=== PATIENT | female | born 1955 | race Asian ===

== ENCOUNTER 2020-01-23 13:48 | Emergency (ER) | payer BC ==
[~2020-01-23] VITALS: Ht 160 cm; Wt 50.2 kg
[2020-01-23] MEDS ORDERED: SODIUM CHLORIDE 0.9% 100 ML ONE (14:02)
[2020-01-23] MEDS ORDERED: IOVERSOL 350 MG/ML 100 ML VIAL ONE (14:02)
[2020-01-23 14:10] LABS: BASOPHILS % (AUTO) 0.2 % (0.0-2.0); EOSINOPHILS % (AUTO) 0.1 % (1.0-6.0); HEMATOCRIT 42.8 % (36-46); LYMPHOCYTES # (AUTO) 0.6 K/uL (1.0-4.8); LYMPHOCYTES % (AUTO) 6.6 % (22.0-44.0); MEAN CORPUSCULAR HEMOGLOBIN 29.7 pg (26.0-34.0); MEAN CORPUSCULAR HGB CONC 32.7 G/dL (31.0-37.0); MEAN CORPUSCULAR VOLUME 91 fL (80-100); MONOCYTES # (AUTO) 0.4 K/uL (0.1-1.0); MONOCYTES % (AUTO) 4.5 % (2.0-9.0); NEUTROPHILS # (AUTO) 7.4 K/uL (1.8-7.7); RED CELL DISTRIBUTION WIDTH 18.3 % (11.5-14.5)
[2020-01-23 14:21] LABS: NEUTROPHILS % (AUTO) 88.6 % (40.0-70.0)
[2020-01-23 14:24] LABS: INR 1.3 (0.9-1.1); PROTHROMBIN TIME 13.1 SEC (9.4-11.6)
[2020-01-23 14:26] LABS: ANION GAP 9 mmol/L (8-16); CALCIUM, TOTAL 8.9 mg/dL (8.8-10.5); CARBON DIOXIDE 24 mmol/L (22-29); CHLORIDE 101 mmol/L (98-107); CREATININE 0.85 mg/dL (0.60-1.30); GLOMERULAR FILTR. RATE CALC > 60 mL/min (>60); GLUCOSE,RANDOM 145 mg/dL (70-110); POTASSIUM 4.6 mmol/L (3.5-5.1); SODIUM SERUM 134 mmol/L (136-145); UREA NITROGEN, BLOOD 27 mg/dL (7-18)
[2020-01-23] MEDS: OXYGEN THERAPY IH SCH ×2 (14:27→17:00)
[2020-01-23 14:31] LABS: ALANINE AMINOTRANSFERASE 41 U/L (12-78); ALBUMIN 3.6 g/dL (3.4-5.0); ALKALINE PHOSPHATASE 77 U/L (46-116); ASPARTATE AMINOTRANSFERASE 55 U/L (15-37); BILIRUBIN,TOTAL 0.6 mg/dL (0.1-1.0); TOTAL PROTEIN, SERUM 7.2 g/dL (6.4-8.2)
[2020-01-23 14:37] LABS: PLATELET COUNT (AUTO) 33 K/uL (150-450)
[2020-01-23] MEDS ORDERED: LEVO100 PO (15:43)
[2020-01-23] MEDS ORDERED: DEXA2 PO (15:43)
[2020-01-23] MEDS ORDERED: MEMA5 PO (15:43)
[2020-01-23] MEDS ORDERED: FAMO20 PO (15:43)
[2020-01-23] MEDS ORDERED: ASPIRIN 300 MG RECTAL SUPPOSITORY PR ONE (15:45)
[2020-01-23] MEDS ORDERED: KETAMINE HCL 50 MG/ML 10 ML VIAL IVP ONE (16:15)
[2020-01-23] MEDS ORDERED: MIDAZOLAM HCL 100 MG in DEXTROSE 5%-WATER 180 ML IV PRN (16:15)
[2020-01-23] MEDS ORDERED: SUCCINYLCHOLINE CHLORIDE 20 MG/ML 10 ML VIAL IVP ONE (16:15)
[2020-01-23] MEDS ORDERED: DEXMEDETOMIDINE HCL 200 MCG in SODIUM CHLORIDE 0.9% 48 ML IV PRN (17:15)
[2020-01-23 17:27] VITALS: BP 113/86
[2020-01-23 17:50] LABS: COVID AG,FIA SOURCE NASOPHARYNGEAL
== END 2020-01-23 17:50 | disposition short-term general hospital (02) ==
LOC: EMS 13:48
DX: I63.9 Cerebral infarction, unspecified (principal); I21.9 Acute myocardial infarction, unspecified; C79.31 Secondary malignant neoplasm of brain; Z85.118 Personal history of other malignant neoplasm of bronchus and lung; Z20.828 Contact with and (suspected) exposure to other viral communicable diseases
CPT/HCPCS: 31500; 36415; 70450; 70496; 71045; 80053; 84484; 85025; 85610; 85730; 86850; 86900; 86901; 87426; 93005; 96365; 96367; 99291; 99292; J0330; J2250; J3490; J7050 ×2; J7060; Q9967; 51702; 94002